=== PATIENT | male | born 1990 | race Caucasian/White ===

== ENCOUNTER 2021-08-29 16:46 | Emergency (ER) | payer SELFPAY | END 2021-08-29 17:50 | disposition home or self-care (01) | LOC: JP.ED 16:46 | DX: K04.7 Periapical abscess without sinus (principal); Z88.0 Allergy status to penicillin; Z72.0 Tobacco use | CPT/HCPCS: 99282 ==

== ENCOUNTER 2021-09-06 15:48 | Emergency (ER) | payer MEDICAID, OTHER | END 2021-09-06 16:44 | disposition home or self-care (01) | LOC: JP.ED 15:48 | DX: S61.211A Laceration without foreign body of left index finger without damage to nail, initial encounter (principal); K08.89 Other specified disorders of teeth and supporting structures; Z88.0 Allergy status to penicillin; Z72.0 Tobacco use; W26.8XXA Contact with other sharp object(s), not elsewhere classified, initial encounter; Y99.0 Civilian activity done for income or pay | CPT/HCPCS: 12001; 99282; 99282-25 ==